=== PATIENT | female | born 1960 | race Two or more races ===

== ENCOUNTER 2018-05-23 07:55 | Emergency (ER) | payer OTHER ==
[2018-05-23 08:13] VITALS: BP 140/68; PULSE 71; TEMP 98; BMI 25.1
--- NOTE | 2018-05-23 08:17 | PDOC ---
History of Present Illness - General Chief Complaint: Pain Stated Complaint: TRIP AND FALL LEFT SIDE BODY PAIN Time Seen by Provider: 05/23/18 07:57 History Source: Patient Exam Limitations: No Limitations - History of Present Illness Initial Comments: 58 yo F history HTN, HL, DM, hypothyroid presents s/p mechanical fall while getting into her car. She states she rolled her ankle and twisted her leg, falling onto her left knee and hitting the left side of her head (contrary to triage chief complaint, the injury is on the LEFT side). Denies LOC, N/V. She has L-sided neck pain and mild L-sided temporal headache. No weakness, numbness. She c/o abrasion to the L knee with some localized pain. Able to ambulate without difficulty. Past History - Past Medical History Allergies/Adverse Reactions: Allergies Allergy/AdvReac Type Severity Reaction Status Date / Time levofloxacin [From Levaquin] Allergy Severe Difficulty Verified 05/23/18 08:02 Breathing clarithromycin [From Biaxin] AdvReac Intermediate Verified 05/23/18 08:01 Home Medications: Ambulatory Orders Levothyroxine [Synthroid -] 100 mcg PO DAILY 11/27/11 Losartan Potassium [Cozaar] 50 mg PO DAILY 11/27/11 Glyburide/Metformin HCl [Glucovance 2.5-500 mg Tablet] 1 each PO BID 12/12/12 Atorvastatin Ca [Lipitor] 20 mg PO HS 05/23/18 Cholecalciferol (Vitamin D3) [Vitamin D3] 1 cap PO DAILY 05/23/18 Empagliflozin [Jardiance] 10 mg PO DAILY 05/23/18 Gabapentin 100 mg PO DAILY 05/23/18 Iron 25 mg PO DAILY 05/23/18 Flomot-3/Dha/Epa/Fish Oil [Fish Oil 1,600 mg/5 ml Liquid] 1 tsp PO DAILY Ranitidine [Zantac -] 150 mg PO BID 05/23/18 Sitagliptin Phosphate [Januvia] 100 mg PO DAILY 05/23/18 Anemia: No Asthma: No Cancer: No Cardiac Disorders: No CVA: No COPD: No CHF: No Dementia: No Diabetes: Yes GI Disorders: No Disorders: No HTN: Yes Hypercholesterolemia: Yes Liver Disease: No Seizures: No Thyroid Disease: Yes (HYPO) - Surgical History Abdominal Surgery: No Appendectomy: No Cardiac Surgery: No Cholecystectomy: No Lung Surgery: No Neurologic Surgery: No Orthopedic Surgery: No - Immunization History Immunization Up to Date: Yes (05/10) - Suicide/Smoking/Psychosocial Hx Smoking Status: No Smoking History: Never smoked Have you smoked in the past 12 months: No Number of Cigarettes Smoked Daily: 0 Information on smoking cessation initiated: No Hx Alcohol Use: No Drug/Substance Use Hx: No Substance Use Type: None Review of Systems - Review of Systems Able to Perform ROS?: Yes Comments:: GENERAL/CONSTITUTIONAL: No fever or chills. No weakness. HEAD, EYES, EARS, NOSE AND THROAT: No change in vision. No ear pain or discharge. No sore throat. CARDIOVASCULAR: No chest pain or shortness of breath. RESPIRATORY: No cough, wheezing, or hemoptysis. GASTROINTESTINAL: No nausea, vomiting, diarrhea or constipation. GENITOURINARY: No dysuria, frequency, or change in urination. MUSCULOSKELETAL: No joint or muscle swelling. No neck or back pain. SKIN: L knee abrasion. NEUROLOGIC: +Headache. No vertigo, loss of consciousness, or change in strength/ sensation. ENDOCRINE: No increased thirst. No abnormal weight change. HEMATOLOGIC/LYMPHATIC: No anemia, easy bleeding, or history of blood clots. ALLERGIC/IMMUNOLOGIC: No hives or skin allergy. *Physical Exam - Vital Signs Last Vital Signs Temp Pulse Resp BP Pulse Ox 98 F 71 16 140/68 100 05/23/18 07:57 05/23/18 07:57 05/23/18 07:57 05/23/18 07:57 05/23/18 07:57 - Physical Exam Comments: GENERAL: Awake, alert, and fully oriented, in no acute distress HEAD: +Small hematoma to L temporal area, no open lesions. EYES: PERRLA, EOMI, sclera anicteric, conjunctiva clear ENT: Auricles normal inspection, hearing grossly normal, nares patent, oropharynx clear without exudates. Moist mucosa NECK: Normal ROM, supple, no lymphadenopathy, JVD, or masses LUNGS: Breath sounds equal, clear to auscultation bilaterally. No wheezes, and no crackles HEART: Regular rate and rhythm, normal S1 and S2, no murmurs, rubs or gallops ABDOMEN: Soft, nontender, normoactive bowel sounds. No guarding, no rebound. No masses EXTREMITIES: L knee with mod patellar tenderness to inferior lateral area. FROM , no swelling, no effusion, no ligamentous instability. Remainder of extremities with normal range of motion, no edema. No clubbing or cyanosis. No cords, erythema, or tenderness NEUROLOGICAL: Cranial nerves II through XII grossly intact. Normal speech, normal gait. Normal strength and sensation. SKIN: Warm, Dry, normal turgor. +Abrasion to the L anterior inferior knee, just below the patella. SPINE: No midline tenderness. +L paraspinal soft tissue tenderness and tenderness to L trapezius muscles. Medical Decision Making - Medical Decision Making 05/23/18 08:45 L knee wound dressed with xeroform and sterile gauze. CTH and c-spine based on mechanism of injury. L knee XR to r/o patellar fx. 05/23/18 09:33 CTs and x-rays reviewed, patient stable for DC home. *DC/Admit/Observation/Transfer Diagnosis at time of Disposition: Abrasion Head injury Qualifiers: Encounter type: initial encounter Qualified Code(s): S09.90XA - Unspecified injury of head, initial encounter - Discharge Dispostion Disposition: HOME Condition at time of disposition: Stable Decision to Admit order: No - Referrals - Patient Instructions Printed Discharge Instructions: DI for Closed Head Injury, DI for Abrasion - Post Discharge Activity
[2018-05-23] MEDS ORDERED: ACETAMINOPHEN 325 MG TABLET (FP) PO ONE (08:27)
[2018-05-23] MEDS ORDERED: ACETAMINOPHEN 325 MG TABLET (FP) ONE (08:46)
== END 2018-05-23 09:42 | disposition home or self-care (01) ==
LOC: FER 07:55
DX: S09.90XA Unspecified injury of head, initial encounter (principal); S80.212A Abrasion, left knee, initial encounter; W18.39XA Other fall on same level, initial encounter; Y93.89 Activity, other specified; Y92.410 Unspecified street and highway as the place of occurrence of the external cause; I10 Essential (primary) hypertension; E78.5 Hyperlipidemia, unspecified; E11.9 Type 2 diabetes mellitus without complications; E03.9 Hypothyroidism, unspecified
CPT/HCPCS: 70450-TC; 72125-TC; 73562-TC-LT-FY; 99282-25

== ENCOUNTER 2024-07-16 04:19 | Day surgery (SDC) | payer OTHER ==
[2024-07-08 16:23] VITALS: BMI 23.7
[2024-07-16 08:50] VITALS: TEMP 97.8
[2024-07-16 09:32] VITALS: BP 118/57; PULSE 79; RESP 16
== END 2024-07-16 09:30 | disposition home or self-care (01) ==
LOC: JASU-ENDO 04:19
PROVIDERS: ATTEND Internal Medicine Gastroenterology
PROC: 0DJD8ZZ Inspection of Lower Intestinal Tract, Via Natural or Artificial Opening Endoscopic (ICD-10-PCS; principal; 2024-07-16 08:00)
DX: Z12.11 Encounter for screening for malignant neoplasm of colon (principal); Z86.0100 Personal history of colon polyps, unspecified
CPT/HCPCS: 82962